=== PATIENT | male | born 1965 | race African-American/Black ===

== ENCOUNTER 2017-04-02 05:06 | Emergency (ER) | payer BC ==
[~2017-04-02] VITALS: Ht 162.6 cm; Wt 79.0 kg
[2017-04-02 05:42] VITALS: BP 135/82
[2017-04-02] MEDS ORDERED: NITROGLYCERIN OINT 1GM/INCH UDPKT TD ONE (05:45)
[2017-04-02] MEDS ORDERED: ASPIRIN 81MG TABLET PO ONE (05:45)
[2017-04-02] MEDS ORDERED: SODIUM CHLORIDE 0.9% 1,000 ML IV ONE (05:50)
[2017-04-02] MEDS ORDERED: INSULIN REGULAR (HUMULIN R) 300UNITS/3ML IV ONE (06:00)
== END 2017-04-02 06:14 | disposition short-term general hospital (02) ==
LOC: ER 06:12
DX: I21.3 ST elevation (STEMI) myocardial infarction of unspecified site (principal); E11.65 Type 2 diabetes mellitus with hyperglycemia; Z86.73 Personal history of transient ischemic attack (TIA), and cerebral infarction without residual deficits
CPT/HCPCS: 82962; 93005; 96361; 96374; 99291; J1815; Z7610; J7030